=== PATIENT | male | born 1945 | race Caucasian/White ===

== ENCOUNTER 2023-01-30 09:58 | Outpatient (CLI) | payer MEDICARE, OTHER | END 2023-01-30 20:02 | disposition home or self-care (01) | LOC: MRD 09:58 | PROVIDERS: ATTEND Hospitalist | DX: S82.252D Displaced comminuted fracture of shaft of left tibia, subsequent encounter for closed fracture with routine healing (principal); Z47.2 Encounter for removal of internal fixation device; M25.462 Effusion, left knee; X58.XXXD Exposure to other specified factors, subsequent encounter | CPT/HCPCS: 73590 ==